=== PATIENT | male | born 1990 | race Caucasian/White ===

== ENCOUNTER 2024-02-19 20:42 | Inpatient (IN) | payer OTHER ==
[~2024-02-19] VITALS: Ht 180.3 cm; Wt 98.2 kg
--- NOTE | 2024-02-19 21:08 | NUR ---
Received report from [facility] nurseMaisha.
[2024-02-19 22:36] VITALS: BP 127/84; PULSE 85; TEMP 97.9
--- NOTE | 2024-02-19 22:36 | NUR ---
Patient arrives to ICU room 6 via EMS stretcher. Patient is alert and oriented upon arrival. He is on room air; all initial vitals within normal limits. He arrives receiving insulin drip at 10 units/hr, LR at 100 mL/hr, and D10 at 100mL/hr -- all of which are stopped pending further orders from provider. Inital BG of 256. Patient denies pain or discomfort. He is able to ambulate with SBA to ICU bed; gait is steady.
[2024-02-19] MEDS ORDERED: Insulin Human Regular/NS 100 ML IV SCH (23:15)
[2024-02-19] MEDS ORDERED: NS 1,000 ML IV SCH (23:15)
[2024-02-19] MEDS ORDERED: D5 1/2 NS & 20 mEq KCl 1,000 ML IV SCH (23:15)
[2024-02-19 23:36] LABS: COLLECTION METHOD CLEAN CATCH
[2024-02-19] MEDS ORDERED: Ondansetron 4 MG/2 ML VIAL IV PRN (23:45)
[2024-02-19 23:47] LABS: URINE APPEARANCE CLEAR (CLEAR/HAZY); URINE BLOOD 1+ (NEGATIVE); URINE COLOR YELLOW (YELLOW); URINE GLUCOSE 3+ (NEGATIVE); URINE KETONE 4+ (NEGATIVE); URINE NITRATE NEGATIVE (NEGATIVE); URINE PROTEIN(semi-quant) 1+ (NEGATIVE); URINE UROBILINOGEN 0.2 E.U/dL (0.2-1.0)
[2024-02-20] VITALS (10 sets, daily range): BP systolic 104–128; BP diastolic 53–76; PULSE 64–85; TEMP 97.6–98.4; O2SAT 97–99
--- NOTE | 2024-02-20 | NUR ---
Patient's belongings include street clothes, a pair of glasses, and a black bookbag. Patient states he has his wallet with his belongings. He denies having hearing aids or dentures. Denies having removable jewelry on his person. Denies having other valuables of note in bookbag.
[2024-02-20 00:26] LABS: ALBUMIN 4.2 g/dL (3.5-5.0); BILIRUBIN,TOTAL 0.5 mg/dL (0.2-1.2); CALCIUM 9.3 mg/dL (8.4-10.2); CREATININE, serum 1.92 mg/dL (0.72-1.25); MAGNESIUM 2.3 mg/dL (1.6-2.6); PHOSPHOROUS 2.3 mg/dL (2.3-4.7); POTASSIUM 4.7 mEq/L (3.5-4.5); TOTAL PROTEIN 7.8 g/dl (6.2-8.1)
[2024-02-20] MEDS ORDERED: MYCELEX10 MG/TAB MM (01:12)
[2024-02-20] MEDS ORDERED: D5 1/2 NS 1,000 ML IV SCH (01:15)
[2024-02-20] MEDS ORDERED: NS 1,000 ML IV ONE (01:30)
[2024-02-20 01:33] LABS: CREATININE, serum 1.92 mg/dL (0.72-1.25); POTASSIUM 4.3 mEq/L (3.5-4.5)
[2024-02-20 03:44] LABS: CALCIUM 8.6 mg/dL (8.4-10.2); CREATININE, serum 1.86 mg/dL (0.72-1.25); POTASSIUM 3.8 mEq/L (3.5-4.5)
[2024-02-20 05:46] LABS: CALCIUM 8.5 mg/dL (8.4-10.2); CREATININE, serum 1.88 mg/dL (0.72-1.25); POTASSIUM 3.6 mEq/L (3.5-4.5)
--- NOTE | 2024-02-20 07:00 | NUR ---
Report received from MADELINE Collins. Pt arrived from [facility] overnight. New onset DM with DKA. Pt currently on insulin gtt. Pt alert and oriented this AM; offers no complaints. Next accucheck at 0800. Call light in reach.
--- NOTE | 2024-02-20 07:27 | NUR ---
Pt BG of 135 from 192. Insulin drip on standby for 30 minutes starting now.
[2024-02-20 07:44] LABS: CALCIUM 8.7 mg/dL (8.4-10.2); CREATININE, serum 1.59 mg/dL (0.72-1.25); POTASSIUM 3.4 mEq/L (3.5-4.5)
[2024-02-20] MEDS ORDERED: Nystatin Oral Susp 100,000 UNITS/ML 5 ML UD PO SCH (09:00)
[2024-02-20] MEDS ORDERED: Pantoprazole 40 MG in NS 10 ML IV SCH (09:00)
--- NOTE | 2024-02-20 09:27 | NUR ---
PATIENT EDUCATION PROVIDED ON WHAT BG NUMBERS SHOULD BE AND WHAT HE SHOULD DO IF THEY BECOCME OUT OF RANGE. DISCUSSED THE POSSIBILITY OF A CGM WITH THE PATIENT AND HE STATED HE WOULD RATHER HAVE A CGM THEN POKE HIS FINGER ALL THE TIME. INITIAL DIABETES FOLDER GIVEN TO PATIENT. A1C EDUCATION PROVIDED WELL. HE SEEMS TO WANT TO COME SEE US OUTPATIENT BUT NEEDS TO GET ESTABLISHED WITH A PCP SO WE CAN GET THAT REFERRAL SENT TO US. DELFINO, MSN, RN
--- NOTE | 2024-02-20 10:10 | NUR ---
Electrical Machinist met with patient at bedside to complete discharge planning. Patient complains of headache, resting in dark room. Patient verifies that he is active and lives [facility]. [facility] [place], uses no DME and is active and independent. Patient lists his brother, Hamzah ([phone]) as his contact and thinks he named brother as DPOA. Discussed completing a DPOA form while patient is in hospital if he so desires. Patient denied any needs at this time and plans to return home at discharge. Patient utilized hospital pharmacy for medication needs and states they are covered by [place]. Discharge plan: home
[2024-02-20] MEDS ORDERED: *Potassium Replacement Protocol MC SCH (11:14)
[2024-02-20] MEDS ORDERED: Insulin Glargine-ygfn (Lantus) SQ SCH (11:30)
[2024-02-20] MEDS ORDERED: Dextrose (Glucose) 15 GM (4 x 3.75 GM) Chewable TABLET PACK PO PRN (11:30)
[2024-02-20] MEDS ORDERED: Glucagon 1 MG VIAL IM PRN (11:30)
[2024-02-20] MEDS ORDERED: Potassium Bicarbonate/Citrate 20 MEQ Effervescent TAB PO SCH (11:30)
[2024-02-20] MEDS ORDERED: Dextrose 50% Water 25 GM/50 ML SYRINGE IV PRN (11:30)
--- NOTE | 2024-02-20 11:40 | NUR ---
INSULING DRIP PLACED ON HOLD X30 MINUTES AT THIS TIME PER [employer].
[2024-02-20] MEDS ORDERED: NS 1,000 ML IV SCH (15:00)
[2024-02-20] MEDS ORDERED: Insulin Lispro (HumaLOG) SQ SCH (16:00)
--- NOTE | 2024-02-20 21:04 | NUR ---
PT IS IN THE BED WATCHING TV AND USING HIS PHONE. HE IS ALERT AND ORIENTED. USES THE URINAL TO VOID. IV FLUID INFUSING IN HIS RIGHT HAND. NO COMPLAINTS AT THIS TIME. PT EDUCATED ON CALLING BEFORE GETTING OUT OF THE BED. CALL GUADARRAMA AT THE BEDSIDE.
[2024-02-21] VITALS (7 sets, daily range): BP systolic 120–133; BP diastolic 55–80; PULSE 60–68; TEMP 97.7–98.7; O2SAT 98–99
--- NOTE | 2024-02-21 07:00 | NUR ---
Report received from MADELINE Gomez. Reviewed overnight events. Pt did not have any labs drawn this AM. Will discuss with provider. IVF infusing per orders. Pt resting in bed with eyes closed. Call light within reach. Will continue with POC.
[2024-02-21] MEDS ORDERED: GLUTOSE 1515 GM PO (11:12)
[2024-02-21] MEDS ORDERED: NOVOLOG FLEX100 U/ML SQ ×2 (11:12→13:05)
[2024-02-21] MEDS ORDERED: GLUCOSE TEST ST1 DEV MC (11:12)
[2024-02-21] MEDS ORDERED: INSULIN PEN NE1 EAC1 MC (11:12)
[2024-02-21] MEDS ORDERED: LANCETS MC (11:12)
[2024-02-21] MEDS ORDERED: BD ALCOHOL1 SWA MC (11:12)
[2024-02-21] MEDS ORDERED: FREESTYLE PREC1 EAC5 MC (11:12)
[2024-02-21] MEDS ORDERED: INSULIN GL100 UNIT/2 SQ ×2 (11:12→13:05)
[2024-02-21] MEDS ORDERED: GLUCAGON EMERGEN1 M1 SQ (11:13)
--- NOTE | 2024-02-21 13:34 | NUR ---
Discharge instructions provided. Reviewed insulin instructions and reviewed that all medications were bein sent to the pharmacy in [place] except for glucagon which was given as a paper script. Reviewed s/s of hyperglycemia and hypoglycemia. Pt verbalized understanding. Stressed importance of going to see PCP as soon as possible. Reveiwed carb control diet and provided education. Pt verbalized understanding. All belongings returned to patient. Pt awaiting ride.
--- NOTE | 2024-02-21 13:57 | NUR ---
Pt anca arrived, walked pt out of ER at [id number]
== END 2024-02-21 13:53 | disposition home or self-care (01) | DRG 638 ==
LOC: ICU 20:42
PROVIDERS: Nurse Practitioner Family; ADMIT Internal Medicine
DX: E11.10 Type 2 diabetes mellitus with ketoacidosis without coma (principal); N17.9 Acute kidney failure, unspecified; E87.5 Hyperkalemia; Z66 Do not resuscitate; E87.6 Hypokalemia; R13.10 Dysphagia, unspecified; Z87.891 Personal history of nicotine dependence
CPT/HCPCS: C9113; J1815; J7030